=== PATIENT | male | born 1960 | race Caucasian/White ===

== ENCOUNTER 2018-09-09 13:34 | Emergency (ER) | payer BC, MEDICAID ==
[~2018-09-09] VITALS: Ht 180.3 cm; Wt 74.8 kg
[2018-09-09] MEDS ORDERED: KETOROLAC TROMETH 60MG/2ML VIAL IM ONE (16:45)
[2018-09-09 17:46] VITALS: BP 161/99
== END 2018-09-09 17:51 | disposition home or self-care (01) ==
LOC: ER 13:36
DX: M54.5 Low back pain (principal); G89.29 Other chronic pain; I10 Essential (primary) hypertension; F17.210 Nicotine dependence, cigarettes, uncomplicated
CPT/HCPCS: 72131; 96372; 99284; J1885